=== PATIENT | male | born 1945 | race Caucasian/White ===

== ENCOUNTER 2017-03-05 13:08 | Emergency (ER) | payer OTHER ==
[~2017-03-05] VITALS: Ht 195.6 cm; Wt 118.2 kg
[2017-03-05 13:15] VITALS: TEMP 36.6; Ht 195.6 cm; Wt 118.2 kg
[2017-03-05 13:49] VITALS: O2SAT 96
[2017-03-05 14:18] LABS: BASO % 0.3 %; BASO ABS # 0.02 K/uL (0-0.2); COMPLETE YES; EOS % 6.3 %; HEMATOCRIT 43.5 % (42-52); IG% 0.2 %; LYMPH % 16.9 %; LYMPH ABS # 1.02 K/uL (1.2-3.4); MEAN CELL VOLUME 90.4 fL (80-100); MEAN CORPUSCULAR HEMOGLOBIN 29.5 pg (25-34); MEAN CORPUSCULAR HGB CONC 32.6 g/dl (32-36); MEAN PLATELET VOLUME 9.9 fL (7.4-10.4); MONO % 7.5 %; NEUT % 68.8 %; PLATELET COUNT 240 K/uL (130-400); RED BLOOD COUNT 4.81 M/uL (4.7-6.1); WHITE BLOOD COUNT 6.03 K/uL (4.8-10.8)
[2017-03-05 14:32] LABS: BLOOD UREA NITROGEN 19 mg/dl (7-18); BUN/CREATININE RATIO 15.6 (10-20); CALCIUM 8.3 mg/dl (8.5-10.1); CARBON DIOXIDE 29 mmol/L (21-32); CHLORIDE 110 mmol/L (98-107); GLUCOSE 117 mg/dl (70-99); POTASSIUM 4.2 mmol/L (3.5-5.1); SODIUM 144 mmol/L (136-145)
--- NOTE | 2017-03-05 14:35 | DIAGNOSTIC IMAGING REPORT ---
CHEST ONE VIEW PORTABLE CLINICAL HISTORY: Chest pain. COMPARISON STUDY: No previous studies for comparison. FINDINGS: Lung volumes are normal. There is no pneumothorax or pleural effusion. Minimal left basilar opacity is noted. There is diffuse reticulonodular interstitial thickening. There may be small calcified nodules within the lungs. Cardiac size is normal. Mediastinal contours are normal. IMPRESSION: 1. Mild reticulonodular interstitial thickening, a nonspecific finding. 2. Mild left basilar opacity. Atelectasis is favored however radiographic follow-up is recommended. Electronically signed by: Christopher Gasca M.D. 03/05/2017 2:34 PM Dictated Date/Time: 03/05/2017 2:33 PM
[2017-03-05 14:37] LABS: CKMB/CK RATIO 1.1 (0-3.0)
[2017-03-05] MEDS ORDERED: BUSP15TA70 PO (15:03)
[2017-03-05] MEDS ORDERED: CYM/30 PO (15:03)
[2017-03-05] MEDS ORDERED: PANT40TA PO (15:03)
[2017-03-05] MEDS ORDERED: GABA600T PO (15:03)
[2017-03-05] MEDS ORDERED: ROPI0.5T15 PO ×3 (15:03)
[2017-03-05] MEDS ORDERED: KETOROLAC TROMETHAMINE 30 MG/ML VIAL IV STA (15:49)
[2017-03-05 16:29] VITALS: BP 154/92; PULSE 67; O2SAT 97
--- NOTE | 2017-03-05 18:16 | EMERGENCY ROOM VISIT NOTE ---
History Report prepared by Marlo: Ivis Jordan Under the Supervision of: Dr. Jayme Rodríguez D.O. First contact with patient: 13:42 Chief Complaint: CHEST PAIN Stated Complaint: PAIN IN LEFT CHEST, LEFT ARM/LEFT SHOULDER BLADE Nursing Triage Summary: Triage note: pt reports left chest pain, pt reports pain in down left arm and in left shoulder blade. pt reports pain was intermittent when it started and is now more constant. History of Present Illness The patient is a 72 year old male who presents to the Emergency Room with complaints of constant chest pain for the past 3 days. The patient describes his pain as sharp and stabbing and states that it goes across his entire chest and through to his back. His pain is alleviated with raising his left arm above his head. When his left arm is lowered by his side he notes burning pain down his arm, chest pain and numbness in his fingers. He experiences chest tightness with a deep breath, but taking a deep breath does not otherwise exacerbate his pain. The patient rates his current pain as an 8/10 in severity. The patient denies nausea, vomiting, diarrhea, and shortness of breath. He denies any pain or swelling in his calves, recent surgery, and any recent long trip, previous blood clots, coughing up blood. He does not take any blood thinners. He denies any significant cardiac history. He denies any exertional chest pain. Denies any history of diabetes, hypertension, hyperlipidemia, or CAD. Source of History: patient Onset: 3 days ago Position: chest Symptom Intensity: 8/10 Quality: sharp, stabbing Timing: constant Modifying Factors (Relieving): other (raising left arm over head) Associated Symptoms: + back pain, + numbness (in left fingers), No SOB, No diarrhea, No nausea, No vomiting Review of Systems See HPI for pertinent positives & negatives. A total of 10 systems reviewed and were otherwise negative. Past Medical & Surgical Surgical Problems: (1) History of hernia repair Family History FH: cancer Hypertension Social History Smoking Status: Never Smoker Smokeless Tobacco Use: No Alcohol Use: none Drug Use: none Marital Status: Housing Status: lives with family Occupation Status: retired Current/Historical Medications Scheduled Buspirone Hcl (Buspar), 15 MG PO BID Duloxetine Hcl (Cymbalta), 30 MG PO DAILY Gabapentin (Neurontin), 900 MG PO UD Pantoprazole (Protonix), 40 MG PO DAILY Ropinirole (Requip), 0.25 MG PO DAILYBL Ropinirole (Requip), 0.5 MG PO DAILYBD Ropinirole (Requip), 1 MG PO HS Allergies Coded Allergies: No Known Allergies (Unverified , 03/05/17) Physical Exam Vital Signs Date Time Temp Pulse Resp B/P Pulse Ox O2 Delivery O2 Flow Rate FiO2 03/05/17 16:29 67 20 154/92 97 03/05/17 15:30 66 20 152/95 97 Room Air 03/05/17 14:03 76 03/05/17 13:49 78 18 156/98 96 Room Air 03/05/17 13:49 96 Room Air 03/05/17 13:15 36.6 78 18 195/97 95 Room Air Physical Exam GENERAL: alert, sitting up in bed, disheveled appearing, well nourished, no distress, non-toxic EYE EXAM: normal conjunctiva OROPHARYNX: no exudate, no erythema, lips, buccal mucosa, and tongue normal and mucous membranes are moist NECK: supple, no nuchal rigidity, no adenopathy, non-tender LUNGS: Clear to auscultation. Normal chest wall mechanics HEART: no murmurs, S1 normal and S2 normal ABDOMEN: abdomen soft, non-tender, normo-active bowel sounds, no masses, no rebound or guarding. BACK: Back is symmetrical on inspection and there is no deformity, acute reproducible tenderness in the left upper trapezius. SKIN: no rashes and no bruising UPPER EXTREMITIES: upper extremities are grossly normal. Radial pulses equal bilaterally. Pain was relieved with abduction over of the head and arm and chest LOWER EXTREMITIES: No pitting edema. NEURO EXAM: Normal sensorium, cranial nerves II-XII grossly intact, normal speech, no gross weakness of arms, no gross weakness of legs. Medical Decision & Procedures ER Provider Diagnostic Interpretation: Radiology results as stated below per my review and the radiologist's interpretation: CHEST ONE VIEW PORTABLE CLINICAL HISTORY: Chest pain. COMPARISON STUDY: No previous studies for comparison. FINDINGS: Lung volumes are normal. There is no pneumothorax or pleural effusion. Minimal left basilar opacity is noted. There is diffuse reticulonodular interstitial thickening. There may be small calcified nodules within the lungs. Cardiac size is normal. Mediastinal contours are normal. IMPRESSION: 1. Mild reticulonodular interstitial thickening, a nonspecific finding. 2. Mild left basilar opacity. Atelectasis is favored however radiographic follow-up is recommended. Electronically signed by: Christopher Gasca M.D. 03/05/2017 2:34 PM Dictated Date/Time: 03/05/2017 2:33 PM Laboratory Results 03/05/17 13:45 Red Blood Count 4.81, Mean Corpuscular Volume 90.4, Mean Corpuscular Hemoglobin 29.5, Mean Corpuscular Hemoglobin Concent 32.6, Mean Platelet Volume 9.9, Neutrophils (%) (Auto) 68.8, Lymphocytes (%) (Auto) 16.9, Monocytes (%) (Auto) 7.5, Eosinophils (%) (Auto) 6.3, Basophils (%) (Auto) 0.3, Neutrophils # (Auto) 4.15, Lymphocytes # (Auto) 1.02, Monocytes # (Auto) 0.45, Eosinophils # (Auto) 0.38, Basophils # (Auto) 0.02 03/05/17 13:45 Test 03/05/17 13:45 White Blood Count 6.03 K/uL (4.8-10.8) Red Blood Count 4.81 M/uL (4.7-6.1) Hemoglobin 14.2 g/dL (14.0-18.0) Hematocrit 43.5 % (42-52) Mean Corpuscular Volume 90.4 fL (80-100) Mean Corpuscular Hemoglobin 29.5 pg (25-34) Mean Corpuscular Hemoglobin Concent 32.6 g/dl (32-36) Platelet Count 240 K/uL (130-400) Mean Platelet Volume 9.9 fL (7.4-10.4) Neutrophils (%) (Auto) 68.8 % Lymphocytes (%) (Auto) 16.9 % Monocytes (%) (Auto) 7.5 % Eosinophils (%) (Auto) 6.3 % Basophils (%) (Auto) 0.3 % Neutrophils # (Auto) 4.15 K/uL (1.4-6.5) Lymphocytes # (Auto) 1.02 K/uL (1.2-3.4) Monocytes # (Auto) 0.45 K/uL (0.11-0.59) Eosinophils # (Auto) 0.38 K/uL (0-0.5) Basophils # (Auto) 0.02 K/uL (0-0.2) RDW Standard Deviation 42.0 fL (36.4-46.3) RDW Coefficient of Variation 12.7 % (11.5-14.5) Immature Granulocyte % (Auto) 0.2 % Immature Granulocyte # (Auto) 0.01 K/uL (0.00-0.02) D-Dimer 320 ug/L FEU (0-500) Anion Gap 5.0 mmol/L (3-11) Est Creatinine Clear Calc Drug Dose 78.1 ml/min Estimated GFR () 69.1 Estimated GFR (Non- 59.6 BUN/Creatinine Ratio 15.6 (10-20) Calcium Level 8.3 mg/dl (8.5-10.1) Total Creatine Kinase 66 U/L (39-308) Creatine Kinase MB 0.7 ng/ml (0.5-3.6) Creatine Kinase MB Ratio 1.1 (0-3.0) Troponin I < 0.015 ng/ml (0-0.045) Laboratory results per my review. Medications Administered Medications (Trade) Dose Ordered Sig/Ernestina Route Start Time Stop Time Status Last Admin Dose Admin Ketorolac Tromethamine (Toradol Inj) 15 mg NOW STAT IV 03/05/17 15:49 03/05/17 15:50 DC 03/05/17 16:03 15 MG ECG Indication: chest pain Rate (beats per minute): 75 Rhythm: normal sinus Findings: no ectopy, other (normal axis) ED Course ED COURSE: Vital signs were reviewed and showed hypertensive. The patients medical record was reviewed The above diagnostic studies were performed and reviewed. ED treatments and interventions as stated above. 1342: The patient was evaluated in room A12B. A complete history and physical examination was performed. 1549: Toradol 15 mg IV 1558: Upon reevaluation, the patient is feeling better and resting comfortably. He had relief of pain with the Toradol. I discussed my findings with the patient and he understands and agrees with the treatment plan. I offered the patient admission/observation and the patient declined. Based on the patients age, coexisting illnesses, exam and lab findings the decision to treat as an outpatient was made. The patient remained stable while under my care. The patient appeared well at the time of discharge. Medical Decision Differential diagnoses includes but is not limited to acute coronary syndrome, myocardial infarction, pericarditis, pulmonary embolus, aortic dissection, pneumonia, pneumothorax, musculoskeletal, shingles, esophageal. Patient is a 72-year-old male who presents the ER for a 3 day history of chest pain without any exacerbating symptoms. He notes that the pain is only relieved when he lifts his left arm up above his head. Pain is not worsened with exertion. There is no shortness of breath. No tightness. He notes that the pain is sharp stabbing in nature and radiates up into his shoulder. He also has tingling on the ulnar aspect of his left arm which is released as well with AB duction of his arm. Radial pulses are equal bilateral and along with a normal chest x-ray. No signs of dissection. D-dimer was negative. He has no risk factors for PE. Troponin was negative with chest pain that has been present for greater than 8 hours consistently. EKG was completely normal. Based on his symptoms I do favor this is musculoskeletal as the pain relieves/ resolves in his arm and his chest with moving his left arm behind his head. Strength is equal bilateral. He also has reproducible tenderness up in his left trapezius which which is clearly reproducible on exam. He was given a shot of Toradol while in the ER and had improvement of his pain. I offered observation overnight with the patient and his prefer to go home as I do not believe this to be his heart. I did feel this was reasonable. His heart score is low. Patient was discharged to follow-up with his primary care doctor tomorrow. Impression Primary Impression: Left sided chest pain Additional Impression: Chest pain, musculoskeletal Scribe Attestation The scribe's documentation has been prepared under my direction and personally reviewed by me in its entirety. I confirm that the note above accurately reflects all work, treatment, procedures, and medical decision making performed by me. Departure Information Dispostion Home / Self-Care Referrals No Doctor, Assigned (PCP) Forms HOME CARE DOCUMENTATION FORM, IMPORTANT VISIT INFORMATION Patient Instructions Chest Pain - [facility], [facility] Additional Instructions Please follow up with your primary care doctor with in the next 24 hours. Any worsening of your symptoms, please return to the ED immediately. This includes chest pain with up walking around/exertion, shortness of breath associated with it, a heaviness in your chest, change in the chest pain, or any other concerning signs or symptoms from your standpoint. Please take Motrin 400 mg 3 times a day as needed for pain. Problem Qualifiers
== END 2017-03-05 16:29 | disposition home or self-care (01) ==
LOC: C.EDB 13:10 → C.EDA 16:29
DX: R07.89 Other chest pain (principal); Z82.49 Family history of ischemic heart disease and other diseases of the circulatory system